=== PATIENT | female | born 1970 | race Hispanic/Latino ===

== ENCOUNTER 2025-06-23 16:14 | Emergency (ER) | payer BC ==
[2025-06-23] MEDS ORDERED: Ibuprofen 800 MG TAB ONE (17:06)
== END 2025-06-23 17:27 | disposition home or self-care (01) ==
LOC: ERS 16:14
DX: M25.562 Pain in left knee (principal); M54.6 Pain in thoracic spine; I10 Essential (primary) hypertension; W01.0XXA Fall on same level from slipping, tripping and stumbling without subsequent striking against object, initial encounter
CPT/HCPCS: 72072; 99283